=== PATIENT | male | born 1995 | race Caucasian/White ===

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

== ENCOUNTER 2017-06-13 10:23 | Emergency (ER) | payer OTHER | END 2017-06-13 12:55 | disposition home or self-care (01) | LOC: M ED 10:23 | DX: M54.12 Radiculopathy, cervical region (principal); M48.02 Spinal stenosis, cervical region; Y92.139 Unspecified place military base as the place of occurrence of the external cause; Y93.A9 Activity, other involving cardiorespiratory exercise; Y99.1 Military activity | CPT/HCPCS: 72125 ==

== ENCOUNTER → 2017-07-24 | Outpatient (CLI) | payer OTHER | LOC: M RAD 14:50 | DX: M51.26 Other intervertebral disc displacement, lumbar region (principal) | CPT/HCPCS: 72146 ==

== ENCOUNTER 2017-08-10 16:47 | Emergency (ER) | payer OTHER | END 2017-08-10 18:22 | disposition home or self-care (01) | LOC: M ED 16:47 | DX: M54.12 Radiculopathy, cervical region (principal); G89.29 Other chronic pain; M48.00 Spinal stenosis, site unspecified | CPT/HCPCS: 72125 ==